=== PATIENT | female | born 1955 | race Caucasian/White ===

== ENCOUNTER 2021-04-17 09:12 | Emergency (ER) | payer MEDICARE ==
[2021-04-17] MEDS ORDERED: Meclizine HCl 25 MG TAB ONE (10:29)
[2021-04-17 10:40] LABS: #Eosinphils 0.2 10x3/uL (0.0-0.5); #Monocytes 0.5 10x3/uL (0.0-1.1); #Neutrophils 4.6 10x3/uL (1.5-8.4); %Basophils 0.6 % (0.0-2.0); %Eosinophils 3.5 % (0.0-6.0); %Lymphocytes 20.8 % (18.0-47.0); %Monocytes 7.5 % (0.0-10.0); %Neutrophils 67.3 % (40.0-75.0); Hemoglobin 15.2 g/dL (12.0-15.5); Mean Corpuscular HGB CONC 32.8 g/dL (32.0-36.0); Mean Corpuscular Hemoglobin 31.9 pg (27.0-33.0); Mean Corpuscular Volume 97.3 fl (81.6-98.3); Mean Platelet Volume 9.8 fl (7.4-10.4); Platelet Count 202 10x3/uL (150-450); RBC Distribution Width 12.6 % (11.5-14.5); Red Blood Cell (RBC) Count 4.76 10x6/uL (3.90-5.03); White Blood Cell (WBC) Count 6.9 10x3/uL (3.5-10.5)
[2021-04-17 10:53] LABS: Bilirubin Neg (Negative); Blood, Urine Negative (Negative); Clarity Clear (Clear); Glucose, Urine (Dipstick) Normal (Negative); Ketone, Urine Negative (Negative); Leukocyte 25 (Negative); Nitrite Negative (Negative); Protein, Urine (Dipstick) Negative (Neg-Trace); Urobilinogen Normal mg/dL (Less than 2); pH, Urine 6.5 (5.0-9.0)
[2021-04-17 11:07] LABS: ALT (SGPT) 23 U/L (8-55); AST (SGOT) 24 U/L (5-34); Albumin 3.9 g/dL (3.4-4.8); Alkaline Phosphatase 140 U/L (40-110); Anion Gap 11 mmol/L (10-20); BUN (Urea Nitrogen) 12 mg/dL (9.8-20.1); Bilirubin, Total 0.5 mg/dL (0.2-1.2); Calc. Creatinine Clearance 0 mL/min (70-130); Calcium 9.4 mg/dL (7.8-10.44); Carbon Dioxide 26 mmol/L (23-31); Chloride 107 mmol/L (98-107); Globulin 3.6 g/dL (2.4-3.5); Glucose 100 mg/dL (80-115); Magnesium 1.9 mg/dL (1.6-2.6); Protein, Total 7.5 g/dL (5.8-8.1); Sodium 140 mmol/L (136-145)
[2021-04-17 11:15] LABS: Bacteria/HPF Rare-Few HPF (None Seen); RBC/HPF 0-3 HPF (0-3)
== END 2021-04-17 13:12 | disposition home or self-care (01) ==
LOC: CSHERS 09:12
DX: R42 Dizziness and giddiness (principal); E03.9 Hypothyroidism, unspecified; E78.5 Hyperlipidemia, unspecified; E78.00 Pure hypercholesterolemia, unspecified; I10 Essential (primary) hypertension; F17.210 Nicotine dependence, cigarettes, uncomplicated; Z86.16 Personal history of COVID-19
CPT/HCPCS: 36415; 70450; 80053; 81003; 81015; 83735; 84439; 84443; 85025; 93005

== ENCOUNTER 2021-09-10 21:00 | Observation (INO) | payer MEDICARE ==
[2021-09-10] MEDS ORDERED: Ondansetron ODT 4 MG TAB PO PRN (22:03)
[2021-09-10] MEDS ORDERED: Ondansetron PF 4 MG/2 ML Vial IVP PRN (22:03)
[2021-09-10] MEDS ORDERED: Acetaminophen 325 MG TAB PO PRN (22:03)
[2021-09-10] MEDS ORDERED: Labetalol HCl 100 MG TAB PO SCH (22:15)
[2021-09-10] MEDS ORDERED: Losartan 25 MG TAB PO SCH (22:15)
[2021-09-10] MEDS ORDERED: Rosuvastatin 10 MG TAB PO SCH (22:30)
[2021-09-10] MEDS ORDERED: TICAGRELOR 90 MG TABLET PO SCH (22:30)
[2021-09-10 22:47] VITALS: BMI 22.1
[2021-09-10 22:51] LABS: Magnesium 1.8 mg/dL (1.6-2.6)
[2021-09-10 22:57] LABS: Troponin I Less than 0.010 ng/mL (< 0.028)
[2021-09-11 04:21] LABS: Hemoglobin 12.2 g/dL (12.0-15.5); Mean Corpuscular Volume 93.8 fl (81.6-98.3); Red Blood Cell (RBC) Count 3.87 10x6/uL (3.90-5.03); White Blood Cell (WBC) Count 6.3 10x3/uL (3.5-10.5)
[2021-09-11 04:22] LABS: #Eosinphils 0.2 10x3/uL (0.0-0.5); #Monocytes 0.6 10x3/uL (0.0-1.1); #Neutrophils 3.9 10x3/uL (1.5-8.4); %Basophils 0.3 % (0.0-2.0); %Eosinophils 2.4 % (0.0-6.0); %Lymphocytes 26.4 % (18.0-47.0); %Neutrophils 61.6 % (40.0-75.0); Mean Corpuscular HGB CONC 33.6 g/dL (32.0-36.0); Mean Corpuscular Hemoglobin 31.5 pg (27.0-33.0); Mean Platelet Volume 9.7 fl (7.4-10.4); Platelet Count 174 10x3/uL (150-450); RBC Distribution Width 13.4 % (11.5-14.5)
[2021-09-11 04:41] LABS: Anion Gap 14 mmol/L (10-20); BUN (Urea Nitrogen) 6 mg/dL (9.8-20.1); Calc. Creatinine Clearance 68 mL/min (70-130); Calcium 8.9 mg/dL (7.8-10.44); Carbon Dioxide 24 mmol/L (23-31); Chloride 111 mmol/L (98-107); Estimated GFR 92; Glucose 102 mg/dL (80-115); Potassium 3.9 mmol/L (3.5-5.1); Sodium 145 mmol/L (136-145)
[2021-09-11] MEDS: Levothyroxine Sodium 88 MCG TAB PO SCH (05:30)
[2021-09-11] MEDS ORDERED: Metoclopramide HCl 10 MG/2 ML VIAL IVP PRN (08:47)
[2021-09-11] MEDS ORDERED: Losartan 25 MG TAB PO SCH (09:00)
[2021-09-11] MEDS: TICAGRELOR 90 MG TABLET PO SCH ×2 (09:38→20:08)
[2021-09-11] MEDS: Aspirin 81 mg Enteric Coated Tablet PO SCH (09:38)
[2021-09-11] MEDS: Enoxaparin Sodium 40 MG/0.4 ML SYRINGE SC SCH (09:39)
[2021-09-11 10:36] LABS: Hemoglobin A1c 5.3 % (4.0-6.0)
[2021-09-11] MEDS ORDERED: ALPRAZolam 0.25 MG TAB PO PRN (11:05)
[2021-09-11] MEDS ORDERED: Promethazine 25 MG TAB PO PRN (13:30)
[2021-09-11] MEDS: Metoprolol Tartrate 25 MG TAB PO SCH (20:07)
[2021-09-11] MEDS ORDERED: Rosuvastatin 10 MG TAB PO SCH (21:00)
[2021-09-11] MEDS ORDERED: Amitriptyline HCl 10 MG TAB PO SCH (21:00)
[2021-09-11] MEDS ORDERED: busPIRone HCl 5 MG TAB PO SCH (21:00)
[2021-09-12 04:11] LABS: #Eosinphils 0.2 10x3/uL (0.0-0.5); #Monocytes 0.5 10x3/uL (0.0-1.1); #Neutrophils 4.1 10x3/uL (1.5-8.4); %Basophils 0.5 % (0.0-2.0); %Eosinophils 3.1 % (0.0-6.0); %Lymphocytes 24.4 % (18.0-47.0); %Monocytes 7.9 % (0.0-10.0); %Neutrophils 63.8 % (40.0-75.0); Hemoglobin 12.8 g/dL (12.0-15.5); Mean Corpuscular HGB CONC 33.6 g/dL (32.0-36.0); Mean Corpuscular Hemoglobin 31.6 pg (27.0-33.0); Mean Corpuscular Volume 94.1 fl (81.6-98.3); Mean Platelet Volume 9.7 fl (7.4-10.4); Platelet Count 193 10x3/uL (150-450); RBC Distribution Width 13.4 % (11.5-14.5); Red Blood Cell (RBC) Count 4.05 10x6/uL (3.90-5.03); White Blood Cell (WBC) Count 6.4 10x3/uL (3.5-10.5)
[2021-09-12 04:40] LABS: ALT (SGPT) 18 U/L (8-55); AST (SGOT) 17 U/L (5-34); Albumin 3.3 g/dL (3.4-4.8); Alkaline Phosphatase 129 U/L (40-110); Anion Gap 14 mmol/L (10-20); BUN (Urea Nitrogen) 9 mg/dL (9.8-20.1); Bilirubin, Direct 0.3 mg/dL (0.1-0.3); Bilirubin, Total 0.8 mg/dL (0.2-1.2); Calc. Creatinine Clearance 68 mL/min (70-130); Calcium 9.2 mg/dL (7.8-10.44); Carbon Dioxide 22 mmol/L (23-31); Cardiac Risk 2.4 (Less than 4.5); Chloride 110 mmol/L (98-107); Cholesterol 129 mg/dl (< 200 Desired); Estimated GFR 92; Glucose 88 mg/dL (80-115); HDL Cholesterol 54 mg/dL (>60 Neg Risk); LDL Cholesterol, Calculated 56 mg/dL; Magnesium 1.8 mg/dL (1.6-2.6); Protein, Total 6.2 g/dL (5.8-8.1); Sodium 142 mmol/L (136-145); Triglycerides 95 mg/dL (Less than 150)
[2021-09-12] MEDS: Levothyroxine Sodium 88 MCG TAB PO SCH (05:35)
[2021-09-12] MEDS ORDERED: Ondansetron PF 4 MG/2 ML Vial IVP PRN (08:49)
[2021-09-12] MEDS: Enoxaparin Sodium 40 MG/0.4 ML SYRINGE SC SCH (09:16)
[2021-09-12] MEDS: Metoprolol Tartrate 25 MG TAB PO SCH (10:53)
[2021-09-12] MEDS: Aspirin 81 mg Enteric Coated Tablet PO SCH (10:53)
[2021-09-12] MEDS: TICAGRELOR 90 MG TABLET PO SCH (10:53)
[2021-09-12 13:09] VITALS: BP 130/62; TEMP 97.5
== END 2021-09-12 13:55 | disposition home or self-care (01) ==
LOC: INTOOBSV 21:00 → CSHTELE 21:00
PROVIDERS: ADMIT Family Medicine; ATTEND Family Medicine
DX: I16.0 Hypertensive urgency (principal); I10 Essential (primary) hypertension; R51.9 Headache, unspecified; R07.89 Other chest pain; I69.398 Other sequelae of cerebral infarction; R42 Dizziness and giddiness; E78.5 Hyperlipidemia, unspecified; I73.9 Peripheral vascular disease, unspecified; I77.1 Stricture of artery; F41.9 Anxiety disorder, unspecified; Z86.16 Personal history of COVID-19; Z79.02 Long term (current) use of antithrombotics/antiplatelets; Z79.82 Long term (current) use of aspirin; Z79.890 Hormone replacement therapy; Z79.899 Other long term (current) drug therapy; Z88.1 Allergy status to other antibiotic agents; Z88.2 Allergy status to sulfonamides; Z88.8 Allergy status to other drugs, medicaments and biological substances; Z95.820 Peripheral vascular angioplasty status with implants and grafts
CPT/HCPCS: 70450; 80048 ×2; 80061; 80076; 83036; 83735 ×2; 84443; 84484; 85025 ×2; 93005; 93975; 96374; 97110; 97116 ×2; G0378 ×3; 36415; 93010; J2405; Q0169

== ENCOUNTER 2021-11-20 10:34 | Outpatient (CLI) | payer MEDICARE | END 2021-11-20 10:35 | disposition home or self-care (01) | LOC: CSHMAMMO 10:34 | PROVIDERS: ATTEND Family Medicine | DX: Z12.31 Encounter for screening mammogram for malignant neoplasm of breast (principal); Z80.3 Family history of malignant neoplasm of breast; Z91.89 Other specified personal risk factors, not elsewhere classified | CPT/HCPCS: 77063; 77067 ==

== ENCOUNTER 2022-04-16 16:33 | Emergency (ER) | payer MEDICARE ==
[2022-04-16] MEDS ORDERED: Ondansetron PF 4 MG/2 ML Vial ONE (17:13)
[2022-04-16 17:39] LABS: #Eosinphils 0.2 10x3/uL (0.0-0.5); #Monocytes 0.6 10x3/uL (0.0-1.1); %Basophils 0.1 % (0.0-2.0); %Eosinophils 2.5 % (0.0-6.0); %Lymphocytes 28.8 % (18.0-47.0); %Monocytes 8.8 % (0.0-10.0); %Neutrophils 59.4 % (40.0-75.0); Hemoglobin 15.1 g/dL (12.0-15.5); Mean Corpuscular HGB CONC 34.4 g/dL (32.0-36.0); Mean Corpuscular Hemoglobin 32.1 pg (27.0-33.0); Mean Corpuscular Volume 93.4 fl (81.6-98.3); Platelet Count 214 10x3/uL (150-450); RBC Distribution Width 12.2 % (11.5-14.5); White Blood Cell (WBC) Count 6.7 10x3/uL (3.5-10.5)
[2022-04-16 18:01] LABS: Sodium 140 mmol/L (136-145)
[2022-04-16 18:02] LABS: ALT (SGPT) 24 U/L (8-55); AST (SGOT) 26 U/L (5-34); Alkaline Phosphatase 165 U/L (40-110); Anion Gap 13 mmol/L (10-20); BUN (Urea Nitrogen) 10 mg/dL (9.8-20.1); Bilirubin, Total 0.6 mg/dL (0.2-1.2); Calc. Creatinine Clearance 0 mL/min (70-130); Calcium 9.4 mg/dL (7.8-10.44); Carbon Dioxide 25 mmol/L (23-31); Chloride 106 mmol/L (98-107); Estimated GFR 70; Globulin 3.1 g/dL (2.4-3.5); Glucose 86 mg/dL (80-115); Potassium 3.9 mmol/L (3.5-5.1); Protein, Total 7.1 g/dL (5.8-8.1)
[2022-04-16] MEDS ORDERED: Acetaminophen 500 MG TAB ONE (18:57)
== END 2022-04-16 19:00 | disposition home or self-care (01) ==
LOC: CSHERS 16:33
DX: I16.0 Hypertensive urgency (principal); R51.9 Headache, unspecified; E03.9 Hypothyroidism, unspecified; E78.00 Pure hypercholesterolemia, unspecified; I10 Essential (primary) hypertension
CPT/HCPCS: 70450; 71045; 80053; 82550; 84484; 85025; 93005; 96374; J2405

== ENCOUNTER 2024-02-24 07:26 | Emergency (ER) | payer MEDICARE ==
[2024-02-24] MEDS ORDERED: Ondansetron PF 4 MG/2 ML Vial ONE (08:07)
[2024-02-24 08:24] LABS: #Basophils 0.03 10x3/uL (0.0-0.2); #Eosinophils 0.21 10x3/uL (0.0-0.5); #Monocytes 0.43 10x3/uL (0.0-1.1); #Neutrophils 4.77 10x3/uL (1.5-8.4); %Basophils 0.4 % (0.0-2.0); %Lymphocytes 21.2 % (18.0-47.0); %Monocytes 6.2 % (0.0-10.0); %Neutrophils 68.9 % (40.0-75.0); Hemoglobin 14.3 g/dL (12.0-15.5); Mean Corpuscular HGB CONC 31.8 g/dL (32.0-36.0); Mean Corpuscular Hemoglobin 29.8 pg (27.0-33.0); Mean Corpuscular Volume 93.8 fL (81.6-98.3); Mean Platelet Volume 9.6 fL (7.4-10.4); Platelet Count 184 10x3/uL (150-450); RBC Distribution Width 12.7 % (11.5-14.5); White Blood Cell (WBC) Count 6.9 10x3/uL (3.5-10.5)
[2024-02-24 08:42] LABS: ALT (SGPT) 19 U/L (8-55); AST (SGOT) 22 U/L (5-34); Albumin 3.7 g/dL (3.4-4.8); Alkaline Phosphatase 126 U/L (40-110); Anion Gap 15 mmol/L (10-20); BUN (Urea Nitrogen) 9 mg/dL (9.8-20.1); Bilirubin, Total 0.9 mg/dL (0.2-1.2); Calc. Creatinine Clearance 0 mL/min (70-130); Calcium 9.6 mg/dL (7.8-10.44); Carbon Dioxide 24 mmol/L (23-31); Chloride 107 mmol/L (98-107); Estimated GFR 68; Globulin 3.2 g/dL (2.4-3.5); Glucose 113 mg/dL (80-115); Lipase 17 U/L (8-78); Potassium 4.4 mmol/L (3.5-5.1); Protein, Total 6.9 g/dL (5.8-8.1); Sodium 142 mmol/L (136-145)
[2024-02-24 08:47] LABS: Troponin I 0.022 ng/mL (< 0.028)
== END 2024-02-24 09:01 | disposition home or self-care (01) ==
LOC: CSHERS 07:26
DX: M25.511 Pain in right shoulder (principal); I10 Essential (primary) hypertension
CPT/HCPCS: 71045; 73030; 80053; 83690; 84484; 85025; 93005; 96374; 99284; J2405

== ENCOUNTER 2024-02-26 06:24 | Emergency (ER) | payer MEDICARE ==
[2024-02-26] MEDS ORDERED: Ondansetron PF 4 MG/2 ML Vial ONE (07:07)
[2024-02-26 07:29] LABS: #Basophils 0.04 10x3/uL (0.0-0.2); #Eosinophils 0.31 10x3/uL (0.0-0.5); #Monocytes 0.53 10x3/uL (0.0-1.1); #Neutrophils 4.93 10x3/uL (1.5-8.4); %Basophils 0.5 % (0.0-2.0); %Eosinophils 4.2 % (0.0-6.0); %Lymphocytes 20.8 % (18.0-47.0); %Monocytes 7.2 % (0.0-10.0); Hematocrit 42.3 % (34.9-44.5); Hemoglobin 13.8 g/dL (12.0-15.5); Mean Corpuscular HGB CONC 32.6 g/dL (32.0-36.0); Mean Corpuscular Hemoglobin 30.5 pg (27.0-33.0); Mean Corpuscular Volume 93.4 fL (81.6-98.3); Mean Platelet Volume 9.6 fL (7.4-10.4); Platelet Count 179 10x3/uL (150-450); RBC Distribution Width 12.8 % (11.5-14.5); Red Blood Cell (RBC) Count 4.53 10x6/uL (3.90-5.03); White Blood Cell (WBC) Count 7.4 10x3/uL (3.5-10.5)
[2024-02-26] MEDS ORDERED: Lorazepam 0.5 MG TAB ONE (07:32)
[2024-02-26 07:51] LABS: ALT (SGPT) 18 U/L (8-55); AST (SGOT) 22 U/L (5-34); Albumin 3.5 g/dL (3.4-4.8); Alkaline Phosphatase 109 U/L (40-110); Anion Gap 13 mmol/L (10-20); BUN (Urea Nitrogen) 11 mg/dL (9.8-20.1); Bilirubin, Total 0.7 mg/dL (0.2-1.2); Calc. Creatinine Clearance 0 mL/min (70-130); Calcium 9.5 mg/dL (7.8-10.44); Carbon Dioxide 25 mmol/L (23-31); Chloride 108 mmol/L (98-107); Estimated GFR 73; Glucose 100 mg/dL (80-115); Potassium 4.4 mmol/L (3.5-5.1); Protein, Total 6.5 g/dL (5.8-8.1); Sodium 142 mmol/L (136-145)
[2024-02-26 07:51] LABS: Troponin I 0.018 ng/mL (< 0.028)
[2024-02-26 08:15] LABS: Bilirubin Neg (Negative); Blood, Urine 50 (Negative); Clarity Clear (Clear); Glucose, Urine (Dipstick) Normal (Negative); Ketone, Urine Negative (Negative); Leukocyte 500 (Negative); Nitrite Negative (Negative); Protein, Urine (Dipstick) Negative (Neg-Trace); Urobilinogen Normal mg/dL (Less than 2)
[2024-02-26] MEDS ORDERED: Iopamidol 300 61% 100 ML VIAL FS ONE (11:22)
[2024-02-26 11:38] LABS: Bacteria/HPF 1+ HPF (None Seen); CAUTI Indications for Culture Pelvic or flank pain; RBC/HPF 0-3 HPF (0-3); Squamous Epithelial Greater than 50 HPF (0-3)
[2024-02-26 11:39] LABS: Urine Culture Reflex No No
== END 2024-02-26 11:46 | disposition home or self-care (01) ==
LOC: CSHERS 06:24
DX: I10 Essential (primary) hypertension (principal); R11.0 Nausea; E03.9 Hypothyroidism, unspecified; E78.00 Pure hypercholesterolemia, unspecified; Z79.890 Hormone replacement therapy; Z86.73 Personal history of transient ischemic attack (TIA), and cerebral infarction without residual deficits; Z79.82 Long term (current) use of aspirin; Z79.899 Other long term (current) drug therapy
CPT/HCPCS: 74177; 80053; 81001; 83690; 84484; 85025; 93005; J2405; 36415; 96374; Q9967

== ENCOUNTER 2024-03-12 09:58 | Emergency (ER) | payer MEDICARE ==
[2024-03-12 11:10] LABS: #Basophils 0.03 10x3/uL (0.0-0.2); #Eosinophils 0.16 10x3/uL (0.0-0.5); #Monocytes 0.52 10x3/uL (0.0-1.1); %Basophils 0.4 % (0.0-2.0); %Eosinophils 2.2 % (0.0-6.0); %Lymphocytes 19.5 % (18.0-47.0); %Monocytes 7.1 % (0.0-10.0); %Neutrophils 70.7 % (40.0-75.0); Hematocrit 43.5 % (34.9-44.5); Hemoglobin 14.1 g/dL (12.0-15.5); Mean Corpuscular HGB CONC 32.4 g/dL (32.0-36.0); Mean Corpuscular Hemoglobin 30.5 pg (27.0-33.0); Mean Corpuscular Volume 94.2 fL (81.6-98.3); Mean Platelet Volume 9.9 fL (7.4-10.4); Platelet Count 174 10x3/uL (150-450); RBC Distribution Width 12.7 % (11.5-14.5); Red Blood Cell (RBC) Count 4.62 10x6/uL (3.90-5.03); White Blood Cell (WBC) Count 7.4 10x3/uL (3.5-10.5)
[2024-03-12 11:33] LABS: ALT (SGPT) 21 U/L (8-55); AST (SGOT) 19 U/L (5-34); Albumin 3.5 g/dL (3.4-4.8); Alkaline Phosphatase 108 U/L (40-110); Anion Gap 12 mmol/L (10-20); BUN (Urea Nitrogen) 8 mg/dL (9.8-20.1); Bilirubin, Total 0.7 mg/dL (0.2-1.2); Calc. Creatinine Clearance 0 mL/min (70-130); Calcium 9.4 mg/dL (7.8-10.44); Carbon Dioxide 26 mmol/L (23-31); Chloride 109 mmol/L (98-107); Estimated GFR 66; Globulin 3.1 g/dL (2.4-3.5); Glucose 97 mg/dL (80-115); Potassium 4.6 mmol/L (3.5-5.1); Protein, Total 6.6 g/dL (5.8-8.1); Sodium 142 mmol/L (136-145)
[2024-03-12 11:36] LABS: Troponin I 0.011 ng/mL (< 0.028)
[2024-03-12] MEDS ORDERED: Promethazine HCl 25 MG/ML VIAL IM SCH (11:45)
== END 2024-03-12 13:14 | disposition home or self-care (01) ==
LOC: CSHERS 09:58
DX: R11.0 Nausea (principal); I10 Essential (primary) hypertension
CPT/HCPCS: 80053; 84484; 85025; 93005; J2550; 96372; 99283

== ENCOUNTER 2024-04-12 17:19 | Inpatient (IN) | payer MEDICARE ==
[2024-04-12] MEDS ORDERED: Promethazine 25 MG TAB ONE (18:17)
[2024-04-12 18:28] LABS: #Basophils 0.04 10x3/uL (0.0-0.2); #Eosinophils 0.15 10x3/uL (0.0-0.5); #Monocytes 0.64 10x3/uL (0.0-1.1); #Neutrophils 5.78 10x3/uL (1.5-8.4); %Basophils 0.5 % (0.0-2.0); %Eosinophils 1.8 % (0.0-6.0); %Lymphocytes 20.8 % (18.0-47.0); %Monocytes 7.6 % (0.0-10.0); %Neutrophils 69.1 % (40.0-75.0); Hematocrit 47.1 % (34.9-44.5); Hemoglobin 15.6 g/dL (12.0-15.5); Mean Corpuscular HGB CONC 33.1 g/dL (32.0-36.0); Mean Corpuscular Hemoglobin 30.8 pg (27.0-33.0); Mean Corpuscular Volume 92.9 fL (81.6-98.3); Mean Platelet Volume 10.3 fL (7.4-10.4); Platelet Count 164 10x3/uL (150-450); RBC Distribution Width 12.4 % (11.5-14.5); Red Blood Cell (RBC) Count 5.07 10x6/uL (3.90-5.03); White Blood Cell (WBC) Count 8.37 10x3/uL (3.5-10.5)
[2024-04-12 18:46] LABS: ALT (SGPT) 26 U/L (Less than 34); AST (SGOT) 27 U/L (11-34); Albumin 3.9 g/dL (3.1-4.5); Alkaline Phosphatase 117 U/L (40-110); Anion Gap 15 mmol/L (10-20); BUN (Urea Nitrogen) 8 mg/dL (9.8-20.1); Bilirubin, Total 0.6 mg/dL (0.3-1.2); Calc. Creatinine Clearance 0 mL/min (70-130); Calcium 9.5 mg/dL (7.8-10.44); Carbon Dioxide 23 mmol/L (23-31); Chloride 105 mmol/L (98-107); Estimated GFR 74; Globulin 3.6 g/dL (2.4-3.5); Glucose 86 mg/dL (80-115); Lipase 15 U/L (8-78); Magnesium 1.9 mg/dL (1.6-2.6); Potassium 4.4 mmol/L (3.5-5.1); Protein, Total 7.5 g/dL (5.8-8.1); Sodium 139 mmol/L (136-145)
[2024-04-12 18:48] LABS: Troponin I Less than 0.010 ng/mL (< 0.028)
[2024-04-12 19:17] LABS: Free T4 (Free Thyroxine) 1.16 ng/dL (0.70-1.48); Thyroid Stimulating Hormone 4.5862 uIU/mL (0.35-4.94)
[2024-04-12 19:40] LABS: Bilirubin Neg (Negative); Blood, Urine Negative (Negative); Clarity Clear (Clear); Glucose, Urine (Dipstick) Normal (Negative); Ketone, Urine 15 mg/dL (Negative); Leukocyte 25 (Negative); Nitrite Negative (Negative); Protein, Urine (Dipstick) 15 mg/dl (Neg-Trace); Urobilinogen Normal mg/dL (Less than 2)
[2024-04-12 19:58] LABS: Bacteria/HPF 1+ HPF (None Seen); CAUTI Indications for Culture Alt mental st,lethar; RBC/HPF 0-3 HPF (0-3)
[2024-04-12 19:59] LABS: Urine Culture Reflex No No
[2024-04-12] MEDS: Lisinopril 2.5 MG TAB PO SCH (21:16)
[2024-04-12] MEDS: Famotidine/PF 20 mg/2ml Vial SLOW IVP SCH (21:17)
[2024-04-12] MEDS: Sodium Chloride 0.9% 1,000 ML IV SCH (21:17)
[2024-04-12 21:19] VITALS: BMI 26.0
[2024-04-12] MEDS: Promethazine HCl 12.5 MG in Sodium Chloride 0.9% 50 ML IVPB PRN (22:22)
[2024-04-13 04:29] LABS: Platelet Count 137 10x3/uL (150-450)
[2024-04-13 04:44] LABS: Anion Gap 13 mmol/L (10-20); BUN (Urea Nitrogen) 6 mg/dL (9.8-20.1); Calc. Creatinine Clearance 74 mL/min (70-130); Calcium 8.7 mg/dL (7.8-10.44); Carbon Dioxide 21 mmol/L (23-31); Chloride 113 mmol/L (98-107); Estimated GFR 85; Glucose 78 mg/dL (80-115); Potassium 3.9 mmol/L (3.5-5.1); Sodium 143 mmol/L (136-145)
[2024-04-13 05:08] LABS: #Basophils Less than 0.03 10x3/uL (0.0-0.2); #Eosinophils 0.12 10x3/uL (0.0-0.5); #Monocytes 0.43 10x3/uL (0.0-1.1); #Neutrophils 2.47 10x3/uL (1.5-8.4); %Basophils 0.4 % (0.0-2.0); %Eosinophils 2.5 % (0.0-6.0); %Lymphocytes 37.3 % (18.0-47.0); %Monocytes 8.9 % (0.0-10.0); %Neutrophils 50.9 % (40.0-75.0); Hematocrit 37.2 % (34.9-44.5); Hemoglobin 12.6 g/dL (12.0-15.5); Mean Corpuscular HGB CONC 33.9 g/dL (32.0-36.0); Mean Corpuscular Volume 94.4 fL (81.6-98.3); Mean Platelet Volume 9.8 fL (7.4-10.4); RBC Distribution Width 12.5 % (11.5-14.5); Red Blood Cell (RBC) Count 3.94 10x6/uL (3.90-5.03); White Blood Cell (WBC) Count 4.85 10x3/uL (3.5-10.5)
[2024-04-13] MEDS ORDERED: Acetaminophen 650 MG Suppository PR PRN (07:39)
[2024-04-13] MEDS ORDERED: Acetaminophen 325 MG TAB PO PRN (07:39)
[2024-04-13] MEDS ORDERED: Bisacodyl 10 MG SUPP PR PRN (07:39)
[2024-04-13] MEDS ORDERED: Senokot S 8.6-50 MG TAB PO PRN (07:39)
[2024-04-13] MEDS ORDERED: Bisacodyl 5 MG TAB PO PRN (07:39)
[2024-04-13] MEDS: FLU (Fluad Triv) TS24-25 (65UP)/MF59C/PF 45 MCG/0.5 ML Syringe IM ONE (08:53)
[2024-04-13] MEDS: Aspirin 81 mg Enteric Coated Tablet PO SCH (10:06)
[2024-04-13] MEDS: Pantoprazole 40 MG VIAL IVP SCH (10:06)
[2024-04-13 10:10] VITALS: BMI 26.0
[2024-04-13] MEDS: Enoxaparin 40 MG (0.4 mL) SYRINGE SC SCH (10:13)
[2024-04-13] MEDS: Carvedilol 6.25 MG TAB PO SCH (10:35)
[2024-04-13] MEDS: Levothyroxine Sodium 88 MCG TAB PO SCH (12:25)
[2024-04-13] MEDS: Lisinopril 2.5 MG TAB PO SCH (13:18)
[2024-04-13] MEDS: Sodium Chloride 0.9% 1,000 ML IV SCH (14:54)
[2024-04-13] MEDS: Rosuvastatin 10 MG TAB PO SCH (20:24)
[2024-04-13] MEDS: Carvedilol 12.5 MG TAB PO SCH (20:24)
[2024-04-14] MEDS: Levothyroxine Sodium 88 MCG TAB PO SCH (05:46)
[2024-04-14 06:07] LABS: Platelet Count 132 10x3/uL (150-450)
[2024-04-14 06:11] LABS: #Basophils 0.03 10x3/uL (0.0-0.2); #Monocytes 0.44 10x3/uL (0.0-1.1); #Neutrophils 2.92 10x3/uL (1.5-8.4); %Basophils 0.6 % (0.0-2.0); %Eosinophils 3.8 % (0.0-6.0); %Lymphocytes 31.3 % (18.0-47.0); %Monocytes 8.4 % (0.0-10.0); %Neutrophils 55.7 % (40.0-75.0); Hematocrit 38.1 % (34.9-44.5); Hemoglobin 12.5 g/dL (12.0-15.5); Mean Corpuscular HGB CONC 32.8 g/dL (32.0-36.0); Mean Corpuscular Hemoglobin 30.9 pg (27.0-33.0); Mean Corpuscular Volume 94.3 fL (81.6-98.3); Mean Platelet Volume 10.3 fL (7.4-10.4); RBC Distribution Width 12.6 % (11.5-14.5); Red Blood Cell (RBC) Count 4.04 10x6/uL (3.90-5.03); White Blood Cell (WBC) Count 5.24 10x3/uL (3.5-10.5)
[2024-04-14 07:03] LABS: Hep B Surf Ag Non-Reactive S/CO (NonReactive)
[2024-04-14 07:15] LABS: ALT (SGPT) 17 U/L (Less than 34); AST (SGOT) 19 U/L (11-34); Albumin 2.8 g/dL (3.1-4.5); Alkaline Phosphatase 89 U/L (40-110); Anion Gap 13 mmol/L (10-20); BUN (Urea Nitrogen) 7 mg/dL (9.8-20.1); Bilirubin, Total 0.3 mg/dL (0.3-1.2); Calc. Creatinine Clearance 80 mL/min (70-130); Calcium 8.5 mg/dL (7.8-10.44); Carbon Dioxide 18 mmol/L (23-31); Cardiac Risk 3.5 (Less than 4.5); Chloride 117 mmol/L (98-107); Cholesterol 156 mg/dl (< 200 Desired); Estimated GFR 94; Globulin 2.5 g/dL (2.4-3.5); Glucose 85 mg/dL (80-115); HDL Cholesterol 45 mg/dL (>60 Neg Risk); LDL Cholesterol, Calculated 92 mg/dL; Magnesium 1.9 mg/dL (1.6-2.6); Potassium 3.9 mmol/L (3.5-5.1); Protein, Total 5.3 g/dL (5.8-8.1); Sodium 144 mmol/L (136-145); Triglycerides 94 mg/dL (Less than 150)
[2024-04-14 07:38] LABS: HBsAg Index 0.16 S/CO (0-0.99)
[2024-04-14] MEDS ORDERED: Promethazine HCl 25 MG/ML VIAL ONE (11:49)
[2024-04-14] MEDS ORDERED: Lidocaine 1% PF 5 ML VIAL ONE (12:18)
[2024-04-14] MEDS ORDERED: PROPOFOL 20 ML ONE ×2 (12:18→12:30)
[2024-04-14 14:11] LABS: Hep A IgM AB NONREACTIVE (NonReactive); Hep A IgM S/CO 0.14 S/CO (0-0.79); Hep B Core IgM Index 0.06 S/CO (0-0.79); Hep C IgG Ab NONREACTIVE S/CO (NonReactive); Hep C Index 0.08 S/CO (0-0.79); Hepatitis B Core IgM Abs NONREACTIVE S/CO (NonReactive)
[2024-04-14 14:19] LABS: Hemoglobin A1c 5.5 % (4.0-6.0)
[2024-04-14] MEDS: Lorazepam 2 MG/ML VIAL SLOW IVP SCH (14:48)
[2024-04-14] MEDS: Amitriptyline HCl 10 MG TAB PO SCH (16:26)
[2024-04-14 16:27] LABS: Campy jejuni + coli by PCR Negative (Negative); STEC Shiga Toxin 1+2 Negative (Negative); Salmonella spp. by PCR Negative (Negative); Shigella spp + EIEC by PCR Negative (Negative)
[2024-04-15 05:31] LABS: #Basophils Less than 0.03 10x3/uL (0.0-0.2); #Eosinophils 0.15 10x3/uL (0.0-0.5); #Monocytes 0.41 10x3/uL (0.0-1.1); %Basophils 0.4 % (0.0-2.0); %Eosinophils 2.9 % (0.0-6.0); %Monocytes 7.9 % (0.0-10.0); %Neutrophils 59.4 % (40.0-75.0); Hematocrit 39.8 % (34.9-44.5); Hemoglobin 13.1 g/dL (12.0-15.5); Mean Corpuscular HGB CONC 32.9 g/dL (32.0-36.0); Mean Corpuscular Volume 94.1 fL (81.6-98.3); Mean Platelet Volume 9.8 fL (7.4-10.4); RBC Distribution Width 12.8 % (11.5-14.5); Red Blood Cell (RBC) Count 4.23 10x6/uL (3.90-5.03); White Blood Cell (WBC) Count 5.21 10x3/uL (3.5-10.5)
[2024-04-15 05:34] LABS: Platelet Count 129 10x3/uL (150-450)
[2024-04-15 05:43] LABS: ALT (SGPT) 17 U/L (Less than 34); AST (SGOT) 22 U/L (11-34); Alkaline Phosphatase 96 U/L (40-110); Anion Gap 10 mmol/L (10-20); BUN (Urea Nitrogen) 6 mg/dL (9.8-20.1); Bilirubin, Total 0.4 mg/dL (0.3-1.2); Calc. Creatinine Clearance 70 mL/min (70-130); Calcium 8.6 mg/dL (7.8-10.44); Carbon Dioxide 26 mmol/L (23-31); Chloride 112 mmol/L (98-107); Estimated GFR 80; Globulin 2.8 g/dL (2.4-3.5); Glucose 94 mg/dL (80-115); Magnesium 1.8 mg/dL (1.6-2.6); Potassium 3.8 mmol/L (3.5-5.1); Protein, Total 5.8 g/dL (5.8-8.1); Sodium 144 mmol/L (136-145)
[2024-04-15 12:18] VITALS: BP 131/80; TEMP 98.4
[2024-04-15] MEDS ORDERED: Amitriptyline HCl 10 MG TAB PO SCH (21:00)
== END 2024-04-15 13:27 | disposition home or self-care (01) | DRG 394 ==
LOC: CSHERS 17:19 → CSHTELE 19:36 → OBSVTOIN 04-14 08:26
PROVIDERS: ADMIT Hospitalist; ATTEND Internal Medicine
PROC: 0DB78ZX Excision of Stomach, Pylorus, Via Natural or Artificial Opening Endoscopic, Diagnostic (ICD-10-PCS; principal; 2024-04-14)
PROC: 0DB98ZX Excision of Duodenum, Via Natural or Artificial Opening Endoscopic, Diagnostic (ICD-10-PCS; 2024-04-14)
DX: K31.7 Polyp of stomach and duodenum (principal); G45.8 Other transient cerebral ischemic attacks and related syndromes; K29.70 Gastritis, unspecified, without bleeding; K44.9 Diaphragmatic hernia without obstruction or gangrene; I10 Essential (primary) hypertension; E78.5 Hyperlipidemia, unspecified; E03.9 Hypothyroidism, unspecified; Z86.73 Personal history of transient ischemic attack (TIA), and cerebral infarction without residual deficits; Z86.79 Personal history of other diseases of the circulatory system; Z79.890 Hormone replacement therapy; Z79.899 Other long term (current) drug therapy; Z79.82 Long term (current) use of aspirin; Z90.49 Acquired absence of other specified parts of digestive tract
CPT/HCPCS: 36415; 70470; 71045; 76705; 80048; 80053; 80061; 80074; 81001; 82941; 83036; 83630; 83690; 83735; 84439; 84443; 84484; 85025; 87505; 88305; 93005; 93923; 96360; 96361; 96365; 96375; 96376; G0378; J2060; J2470; J2550; J2704; J3490; J7030; Q0169

== ENCOUNTER 2024-12-07 11:55 | Observation (INO) | payer MEDICARE ==
[2024-12-07] MEDS ORDERED: Ondansetron PF 4 MG/2 ML Vial ONE ×2 (12:13→12:23)
[2024-12-07 12:24] LABS: #Basophils 0.03 10x3/uL (0.0-0.2); #Eosinophils 0.20 10x3/uL (0.0-0.5); #Monocytes 0.53 10x3/uL (0.0-1.1); #Neutrophils 3.78 10x3/uL (1.5-8.4); %Basophils 0.5 % (0.0-2.0); %Eosinophils 3.3 % (0.0-6.0); %Lymphocytes 25.3 % (18.0-47.0); %Monocytes 8.7 % (0.0-10.0); %Neutrophils 62.0 % (40.0-75.0); Hematocrit 44.5 % (34.9-44.5); Hemoglobin 15.1 g/dL (12.0-15.5); Mean Corpuscular Hemoglobin 31.0 pg (27.0-33.0); Mean Corpuscular Volume 91.4 fL (81.6-98.3); Platelet Count 180 10x3/uL (150-450); Red Blood Cell (RBC) Count 4.87 10x6/uL (3.90-5.03); White Blood Cell (WBC) Count 6.09 10x3/uL (3.5-10.5)
[2024-12-07] MEDS ORDERED: Metoclopramide HCl 10 MG (2 mL) VIAL ONE (12:25)
[2024-12-07 12:40] LABS: INR-International Normal Ratio 0.9; PTT 25.6 sec (22.0-33.0); Prothrombin Time 10.2 sec (9.5-12.1)
[2024-12-07 12:43] LABS: ALT (SGPT) 21 U/L (Less than 34); AST (SGOT) 35 U/L (11-34); Albumin 3.9 g/dL (3.1-4.5); Alkaline Phosphatase 141 U/L (40-110); Anion Gap 10 mmol/L (10-20); BUN (Urea Nitrogen) 10 mg/dL (9.8-20.1); Bilirubin, Total 0.6 mg/dL (0.3-1.2); Calc. Creatinine Clearance 0 mL/min (70-130); Calcium 9.4 mg/dL (7.8-10.44); Carbon Dioxide 25 mmol/L (23-31); Chloride 109 mmol/L (98-107); Globulin 3.9 g/dL (2.4-3.5); Glucose 100 mg/dL (80-115); Potassium 4.4 mmol/L (3.5-5.1); Sodium 140 mmol/L (136-145)
[2024-12-07] MEDS ORDERED: Aspirin Chewable 81 MG TAB ONE (13:17)
[2024-12-07 13:21] LABS: Troponin I Less than 0.010 ng/mL (< 0.028)
[2024-12-07] MEDS ORDERED: Iopamidol 370 76% 100 ML VIAL ONE (13:51)
[2024-12-07] MEDS ORDERED: Acetaminophen 325 MG TAB PO PRN (13:59)
[2024-12-07] MEDS ORDERED: Ondansetron PF 4 MG/2 ML Vial IVP PRN (13:59)
[2024-12-07] MEDS ORDERED: Calcium Carbonate 500 MG ChewTAB PO PRN (13:59)
[2024-12-07] MEDS ORDERED: Senokot S 8.6-50 MG TAB PO PRN (13:59)
[2024-12-07] MEDS ORDERED: Melatonin 3 MG TAB PO PRN (13:59)
[2024-12-07] MEDS ORDERED: Bisacodyl 10 MG SUPP PR PRN (13:59)
[2024-12-07 17:12] VITALS: BMI 28.5
[2024-12-07] MEDS ORDERED: Metoclopramide HCl 10 MG (2 mL) VIAL IVP PRN (18:55)
[2024-12-07] MEDS: Carvedilol 12.5 MG TAB PO SCH (20:09)
[2024-12-07] MEDS: Pantoprazole 40 MG DR.TAB PO SCH (20:09)
[2024-12-07] MEDS: Enoxaparin 40 MG (0.4 mL) SYRINGE SC SCH (20:13)
[2024-12-07] MEDS: Rosuvastatin 10 MG TAB PO SCH (20:44)
[2024-12-08 05:31] LABS: #Basophils Less than 0.03 10x3/uL (0.0-0.2); #Eosinophils 0.14 10x3/uL (0.0-0.5); #Monocytes 0.56 10x3/uL (0.0-1.1); #Neutrophils 3.93 10x3/uL (1.5-8.4); %Basophils 0.3 % (0.0-2.0); %Eosinophils 2.2 % (0.0-6.0); %Lymphocytes 25.3 % (18.0-47.0); %Monocytes 9.0 % (0.0-10.0); %Neutrophils 62.9 % (40.0-75.0); Hematocrit 40.4 % (34.9-44.5); Hemoglobin 13.3 g/dL (12.0-15.5); Mean Corpuscular Hemoglobin 30.8 pg (27.0-33.0); Mean Corpuscular Volume 93.5 fL (81.6-98.3); Platelet Count 176 10x3/uL (150-450); Red Blood Cell (RBC) Count 4.32 10x6/uL (3.90-5.03); White Blood Cell (WBC) Count 6.25 10x3/uL (3.5-10.5)
[2024-12-08 05:47] LABS: Anion Gap 11 mmol/L (10-20); BUN (Urea Nitrogen) 11 mg/dL (9.8-20.1); Calc. Creatinine Clearance 68 mL/min (70-130); Calcium 8.7 mg/dL (7.8-10.44); Carbon Dioxide 27 mmol/L (23-31); Cardiac Risk 2.7 (Less than 4.5); Chloride 109 mmol/L (98-107); Cholesterol 131 mg/dl (< 200 Desired); Glucose 94 mg/dL (80-115); HDL Cholesterol 49 mg/dL (>60 Neg Risk); LDL Cholesterol, Calculated 60 mg/dL; Potassium 4.5 mmol/L (3.5-5.1); Sodium 142 mmol/L (136-145); Triglycerides 111 mg/dL (Less than 150)
[2024-12-08] MEDS ORDERED: Aspirin 81 mg Enteric Coated Tablet PO SCH (09:00)
[2024-12-08 09:16] VITALS: TEMP 98.2
[2024-12-08 14:39] VITALS: BP 120/82
[2024-12-08] MEDS ORDERED: Rosuvastatin 10 MG TAB PO SCH (21:00)
[2024-12-09] MEDS ORDERED: Aspirin 81 mg Enteric Coated Tablet PO SCH (09:00)
== END 2024-12-08 13:45 | disposition home or self-care (01) ==
LOC: CSHERS 11:55 → CSHTELE 13:56
PROVIDERS: ADMIT Internal Medicine; ATTEND Physician Assistant
DX: H81.10 Benign paroxysmal vertigo, unspecified ear (principal); R11.2 Nausea with vomiting, unspecified; I10 Essential (primary) hypertension; H40.9 Unspecified glaucoma; E78.5 Hyperlipidemia, unspecified; E03.9 Hypothyroidism, unspecified; G45.8 Other transient cerebral ischemic attacks and related syndromes; F17.210 Nicotine dependence, cigarettes, uncomplicated; Z98.51 Tubal ligation status; Z86.73 Personal history of transient ischemic attack (TIA), and cerebral infarction without residual deficits; Z87.59 Personal history of other complications of pregnancy, childbirth and the puerperium; Z90.49 Acquired absence of other specified parts of digestive tract; Z88.8 Allergy status to other drugs, medicaments and biological substances; Z88.1 Allergy status to other antibiotic agents; Z88.2 Allergy status to sulfonamides; Z79.890 Hormone replacement therapy; Z79.82 Long term (current) use of aspirin; Z79.899 Other long term (current) drug therapy
CPT/HCPCS: 70450; 70496; 70498; 70551; 82962; 84484; 85610; 85730; 93005; 93923; 94760; J2060; J2765; Q0162; 36416; 80048; 80053; 80061; 84443; 85025; 96361; 96374; 96375; G0378; Q9967